=== PATIENT | male | born 1985 | race African-American/Black ===

== ENCOUNTER 2021-01-11 12:21 | Outpatient (CLI) | payer OTHER ==
[2021-01-11 14:15] LABS: #Basophils 0.1 10x3/uL (0.0-0.2); #Eosinphils 0.3 10x3/uL (0.0-0.5); #Monocytes 0.9 10x3/uL (0.0-1.1); #Neutrophils 5.3 10x3/uL (1.5-8.4); %Eosinophils 3.4 % (0.0-6.0); %Lymphocytes 27.7 % (18.0-47.0); %Neutrophils 57.6 % (40.0-75.0); Hemoglobin 13.8 g/dL (13.5-17.5); Mean Corpuscular HGB CONC 33.3 g/dL (32.0-36.0); Mean Corpuscular Hemoglobin 30.1 pg (27.0-33.0); Mean Corpuscular Volume 90.6 fl (81.2-95.1); Platelet Count 203 10x3/uL (150-450); RBC Distribution Width 14.3 % (11.5-14.5); Red Blood Cell (RBC) Count 4.58 10x6/uL (4.32-5.72); White Blood Cell (WBC) Count 9.2 10x3/uL (3.5-10.5)
[2021-01-11 14:53] LABS: Anion Gap 14 mmol/L (10-20); BUN (Urea Nitrogen) 17 mg/dL (8.9-20.6); Calc. Creatinine Clearance 0 mL/min (70-130); Calcium 9.9 mg/dL (7.8-10.44); Carbon Dioxide 25 mmol/L (22-29); Chloride 108 mmol/L (98-107); Glucose 196 mg/dL (70-105); Potassium 4.7 mmol/L (3.5-5.1); Sodium 142 mmol/L (136-145)
[2021-01-12 21:36] LABS: SARS-CoV-2 PCR by NAA Not Detected (NotDetected)
== END 2021-01-11 12:22 | disposition home or self-care (01) ==
LOC: LABBT 12:21
PROVIDERS: ATTEND Specialist
DX: Z01.818 Encounter for other preprocedural examination (principal); K61.1 Rectal abscess; Z20.822 Contact with and (suspected) exposure to COVID-19
CPT/HCPCS: 80048; 85025; 93005; 93010; U0003; U0005

== ENCOUNTER 2021-01-16 08:50 | Day surgery (SDC) | payer OTHER ==
[2021-01-11 15:08] VITALS: BMI 36.8
[2021-01-16] MEDS ORDERED: Ketorolac Tromethamine 30 MG/ML VIAL ONE (09:22)
[2021-01-16] MEDS ORDERED: Acetaminophen 500 MG TAB ONE (09:22)
[2021-01-16] MEDS ORDERED: MEROPENEM 1 GM/50 ML 1 GM in Premix Bag 1 BAG IVPB SCH (09:45)
[2021-01-16] MEDS ORDERED: Lidocaine 2% Jelly 5 ML TUBE ONE (10:33)
[2021-01-16] MEDS ORDERED: Lidocaine 1% w/Epinephrine 1:100K 30 ML VIAL ONE (10:33)
[2021-01-16] MEDS ORDERED: Bupivacaine PF 0.5% 30 ML VIAL ONE (10:33)
[2021-01-16] MEDS ORDERED: Fentanyl 100 MCG/2 ML VIAL ONE ×2 (10:39)
[2021-01-16] MEDS ORDERED: Ondansetron PF 4 MG/2 ML Vial ONE (10:53)
[2021-01-16] MEDS ORDERED: PHENYLEPHRINE-NS 100 MCG/ML 10 ML SYRINGE ONE ×2 (10:53→11:17)
[2021-01-16] MEDS ORDERED: diphenhydrAMINE 50 MG/ML VIAL ONE (10:53)
[2021-01-16] MEDS ORDERED: PROPOFOL 200 MG/20 ML VIAL ONE (10:53)
[2021-01-16] MEDS ORDERED: Lidocaine 1% PF 5 ML VIAL ONE (10:53)
[2021-01-16] MEDS ORDERED: Meperidine HCl/PF 25 MG/ML VIAL ONE (11:33)
== END 2021-01-16 13:31 | disposition home or self-care (01) ==
LOC: SDC 08:50
PROVIDERS: ATTEND Specialist
PROC: 0H88XZZ Division of Buttock Skin, External Approach (ICD-10-PCS; principal; 2021-01-16)
DX: K61.1 Rectal abscess (principal); K64.9 Unspecified hemorrhoids; J45.909 Unspecified asthma, uncomplicated; E10.9 Type 1 diabetes mellitus without complications; E78.5 Hyperlipidemia, unspecified; I10 Essential (primary) hypertension; Z79.82 Long term (current) use of aspirin; Z79.899 Other long term (current) drug therapy; Z88.1 Allergy status to other antibiotic agents; Z88.2 Allergy status to sulfonamides
CPT/HCPCS: 36416; J1200; J1885; J2175; J2185; J2405; J2704; J3010; S0020